=== PATIENT | female | born 2000 | race Caucasian/White ===

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

== ENCOUNTER 2021-05-29 11:30 | Outpatient (CLI) | payer OTHER | END 2021-05-29 11:31 | disposition home or self-care (01) | LOC: MADRAD 11:30 | PROVIDERS: ATTEND Registered Nurse | DX: R13.10 Dysphagia, unspecified (principal); R93.7 Abnormal findings on diagnostic imaging of other parts of musculoskeletal system | CPT/HCPCS: 70360 ==